=== PATIENT | female | born 1995 | race Caucasian/White ===

== ENCOUNTER 2017-09-13 20:35 | Emergency (ER) | payer OTHER ==
[~2017-09-13] VITALS: Ht 170.2 cm; Wt 68.0 kg
--- NOTE | 2017-09-13 20:37 | ER Report ---
History and Physical Time Seen By MD: 20:37 HPI/ROS CHIEF COMPLAINT: Diarrhea HISTORY OF PRESENT ILLNESS: Vomiting, diarrhea exposure to influenza-like symptoms which her daughter had, associated with mild sore throat no sinus pain no headaches diffuse crampy abdominal pain no bloody stools and no bloody emesis. Denies urinary symptoms or REVIEW OF SYSTEMS: Respiratory: No cough, no dyspnea. Cardiovascular: No chest pain, no palpitations. Gastrointestinal: Otherwise negative Musculoskeletal: No back pain. Allergies: Coded Allergies: No Known Drug Allergies (Unverified , 09/13/17) Home Meds No Active Prescriptions or Reported Meds Constitutional Vital Sign - Last 24 Hours 09/13/17 20:39 Temp 99.5 Pulse 139 Resp 14 B/P (MAP) 145/111 Pulse Ox 97 O2 Delivery Room Air Physical Exam General Appearance: The patient is alert, has no immediate need for airway protection and no signs of toxicity. No acute distress Eyes: Pupils equal and round no pallor or injection. ENT, Mouth: Mucous membranes are moist. Respiratory: There are no retractions, lungs are clear to auscultation. Cardiovascular: Regular rate and rhythm. No murmurs gallops or rubs Gastrointestinal: Abdomen is soft and diffusely tender, no masses, bowel sounds hyperactive Neurological: Grossly normal Skin: Warm and dry, no rashes. Musculoskeletal: Neck is supple non tender. Extremities are nontender, nonswollen and have full range of motion. No edema DIFFERENTIAL DIAGNOSIS: After history and physical exam differential diagnosis was considered for vomiting, diarrhea, gastroenteritis, somatizations disorder, GI virus, influenza-like illness, streptococcal infection, no signs of sepsis pneumonia or other SBI Medical Decision Making Data Points Result Diagram: 09/13/17205409/13/172054 Laboratory Hematology Test 09/13/17 20:55 Red Blood Count 4.87 M/uL (4.17-5.56) Mean Corpuscular Volume 89.4 fL (80.0-96.0) Mean Corpuscular Hemoglobin 31.2 pg (26.0-33.0) Mean Corpuscular Hemoglobin Concent 34.9 g/dL (32.0-36.0) Red Cell Distribution Width 12.8 % (11.5-14.5) Mean Platelet Volume 8.1 fL (7.2-11.1) Neutrophils (%) (Auto) 87.5 % (39.4-72.5) Lymphocytes (%) (Auto) 3.9 % (17.6-49.6) Monocytes (%) (Auto) 7.9 % (4.1-12.4) Eosinophils (%) (Auto) 0.4 % (0.4-6.7) Basophils (%) (Auto) 0.3 % (0.3-1.4) Nucleated RBC Relative Count (auto) 0.0 /100WBC Neutrophils # (Auto) 6.4 K/uL (2.0-7.4) Lymphocytes # (Auto) 0.3 K/uL (1.3-3.6) Monocytes # (Auto) 0.6 K/uL (0.3-1.0) Eosinophils # (Auto) 0.0 K/uL (0.0-0.5) Basophils # (Auto) 0.0 K/uL (0.0-0.1) Nucleated RBC Absolute Count (auto) 0.00 K/uL Sodium Level 138 mmol/L (137-145) Potassium Level 3.5 mmol/L (3.5-5.0) Chloride Level 102 mmol/L (98-107) Carbon Dioxide Level 20 mmol/L (22-31) Blood Urea Nitrogen 10 mg/dl (7-18) Creatinine 0.80 mg/dl (0.52-1.04) Glomerular Filtration Rate Calc > 60.0 Random Glucose 99 mg/dl (75-110) Calcium Level 9.2 mg/dl (8.4-10.2) Total Bilirubin 1.8 mg/dl (0.2-1.3) Aspartate Amino Transf (AST/SGOT) 29 U/L (0-35) Alanine Aminotransferase (ALT/SGPT) 41 U/L (0-56) Alkaline Phosphatase 69 U/L (0-126) Total Protein 7.3 gm/dl (6.3-8.2) Albumin 4.4 g/dl (3.5-5.0) Lipase 47 U/L (23-300) Human Chorionic Gonadotropin, Qual Negative (NEGATIVE) Chemistry Test 09/13/17 20:55 White Blood Count 7.3 k/uL (4.5-11.0) Red Blood Count 4.87 M/uL (4.17-5.56) Hemoglobin 15.2 g/dL (12.0-16.0) Hematocrit 43.5 % (34.0-47.0) Mean Corpuscular Volume 89.4 fL (80.0-96.0) Mean Corpuscular Hemoglobin 31.2 pg (26.0-33.0) Mean Corpuscular Hemoglobin Concent 34.9 g/dL (32.0-36.0) Red Cell Distribution Width 12.8 % (11.5-14.5) Platelet Count 186 K/uL (150-450) Mean Platelet Volume 8.1 fL (7.2-11.1) Neutrophils (%) (Auto) 87.5 % (39.4-72.5) Lymphocytes (%) (Auto) 3.9 % (17.6-49.6) Monocytes (%) (Auto) 7.9 % (4.1-12.4) Eosinophils (%) (Auto) 0.4 % (0.4-6.7) Basophils (%) (Auto) 0.3 % (0.3-1.4) Nucleated RBC Relative Count (auto) 0.0 /100WBC Neutrophils # (Auto) 6.4 K/uL (2.0-7.4) Lymphocytes # (Auto) 0.3 K/uL (1.3-3.6) Monocytes # (Auto) 0.6 K/uL (0.3-1.0) Eosinophils # (Auto) 0.0 K/uL (0.0-0.5) Basophils # (Auto) 0.0 K/uL (0.0-0.1) Nucleated RBC Absolute Count (auto) 0.00 K/uL Glomerular Filtration Rate Calc > 60.0 Calcium Level 9.2 mg/dl (8.4-10.2) Total Bilirubin 1.8 mg/dl (0.2-1.3) Aspartate Amino Transf (AST/SGOT) 29 U/L (0-35) Alanine Aminotransferase (ALT/SGPT) 41 U/L (0-56) Alkaline Phosphatase 69 U/L (0-126) Total Protein 7.3 gm/dl (6.3-8.2) Albumin 4.4 g/dl (3.5-5.0) Lipase 47 U/L (23-300) Human Chorionic Gonadotropin, Qual Negative (NEGATIVE) ED Course/Re-evaluation ED Course Plan of care discussed and agreed upon prior orders placed Abdominal pain labs to exclude specific disease, suspect GI viral syndrome IV hydration IV nausea medication Zofran 4 mg 1, re-eval. By mouth Bentyl as IM is not available in our ordering system at this time. No stool available for further studies screening per protocol No focal abdominal tenderness to suggest surgical disease Re-evaluation 09/13/2017 9:35:36 pm patient feeling better and ready for discharge at this time. Lab results home care follow-up and reasons to return were discussed all questions answered and understood Decision to Disposition Date: Sep 13, 2017 Decision to Disposition Time: 21:36 Depart Departure Latest Vital Signs Vital Signs Date Time Temp Pulse Resp B/P (MAP) Pulse Ox O2 Delivery O2 Flow Rate FiO2 09/13/17 20:39 99.5 139 14 145/111 97 Room Air Impression: Primary Impression: Vomiting and diarrhea Additional Impression: Viral gastroenteritis Condition: Improved Disposition: HOME OR SELF-CARE New Scripts Dicyclomine Hcl (DICYCLOMINE HCL) 20 Mg Tablet 20 MG PO QID for PAIN for 7 Days, #20 CAP Prov: ROYCE MCCARTY MD 09/13/17 Ondansetron (ZOFRAN ODT) 4 Mg Tab.rapdis 4 MG PO Q6H Y for NAUSEA/VOMITING, #20 TAB.JULIANN 0 Refills Prov: ROYCE MCCARTY MD 09/13/17 Patient Instructions: Gastroenteritis (ED) Problem Qualifiers ROYCE MCCARTY MD Sep 13, 2017 20:37
[2017-09-13] MEDS ORDERED: NS(*) 0.9% 1000 ML BAG 1,000 ML IV ONE (20:45)
[2017-09-13] MEDS ORDERED: DICYCLOMINE HCL 10 MG CAP PO ONE (20:45)
[2017-09-13] MEDS ORDERED: ONDANSETRON 4 MG/2 ML VIAL IVP ONE (20:45)
[2017-09-13 21:03] LABS: PLATELET COUNT, AUTOMATED 186 K/uL (150-450)
[2017-09-13] MEDS ORDERED: DICY20TA70 PO (21:39)
[2017-09-13] MEDS ORDERED: ONDA4TAB PO (21:39)
[2017-09-13 21:40] VITALS: BP 104/71
== END 2017-09-13 21:45 | disposition home or self-care (01) ==
LOC: ER 21:09
DX: A08.4 Viral intestinal infection, unspecified (principal)
CPT/HCPCS: 83690; 84703; 85025; 99284; J2405; J7030; 82040; 82247; 82310; 82374; 82435; 82565; 82947; 84075; 84132; 84155; 84295; 84450; 84460; 84520